=== PATIENT | male | born 1995 | race Caucasian/White ===

== ENCOUNTER 2017-09-26 02:35 | Emergency (ER) | END 2017-09-26 06:05 | disposition home or self-care (01) ==

== ENCOUNTER 2019-04-01 13:54 | Emergency (ER) | payer SELFPAY ==
[~2019-04-01] VITALS: Ht 172.7 cm; Wt 82.7 kg
[~2019-04-01 13:54] MED LIST: BEN50 PO; PRED50TA PO
[2019-04-01 14:00] VITALS: BP 165/79; PULSE 71; RESP 17; Ht 172.7 cm; Wt 82.7 kg
[2019-04-01] MEDS ORDERED: LIDOCAINE 2% (MDV) 20 ML INJ INJ STA (14:57)
[2019-04-01] MEDS ORDERED: KETOROLAC 30 MG INJ IM STA (14:57)
[2019-04-01] MEDS ORDERED: TRAM50TA2 PO (15:02)
[2019-04-01] MEDS ORDERED: ACET500C5 PO (15:02)
[2019-04-01] MEDS ORDERED: IBUP-1542 PO (15:02)
--- NOTE | 2019-04-01 15:06 | ERD ---
ER Documentation Chief Complaint Chief Complaint LAC ON RIGHT POSTERIOR ARM NEAR ELBOW, APPROX 3-4 INCHES HPI 23-year-old male with no reported past medical history presents with laceration to right posterior elbow. Patient states he sustained this injury around 12 PM this afternoon when he fell against a soccer goal post. Been having pain to area, wound initially bleeding but since then has resolved. He has been able to move the affected extremity and denies any numbness or weakness to the affected limb. He denies any other injuries. Reports all vaccinations up-to-date and no allergies to medications. ROS All systems reviewed and are negative except as per history of present illness. Medications Home Meds Active Scripts Acetaminophen* (Tylophen*) 500 Mg Capsule, 1 CAP PO Q6H PRN for PAIN AND OR ELEVATED TEMP, #20 CAP Prov:YASMANI HODGES-C 04/01/19 Ibuprofen* (Motrin*) 600 Mg Tab, 600 MG PO Q6, #30 TAB Prov:YASMANI HODGES-C 04/01/19 Tramadol HCl (Tramadol HCl) 50 Mg Tablet, 50 MG PO Q6 PRN for PAIN, #20 TAB Prov:YASMANI HODGES-C 04/01/19 Prednisone* (Prednisone*) 50 Mg Tablet, 50 MG PO DAILY for 5 Days, TAB Prov:TAYLOR GILLIS PHOTOGRAPHY MANAGER 09/26/17 Diphenhydramine Hcl* (Benadryl*) 50 Mg Cap, 50 MG PO Q6H PRN for ITCHING/RASH, #30 CAP Prov:TAYLOR GILLIS PHOTOGRAPHY MANAGER 09/26/17 Allergies Allergies: Coded Allergies: No Known Allergy (Unverified , 09/26/17) PMhx/Soc History of Surgery: No Hx Neurological Disorder: No Hx Respiratory Disorders: No Hx Cardiac Disorders: No Hx Psychiatric Problems: No Hx Miscellaneous Medical Probl: No Hx Alcohol Use: Yes (socially) Hx Substance Use: No Hx Tobacco Use: No FmHx Family History: No diabetes, No coronary disease, No other Physical Exam Vitals Vital Signs Date Temp Pulse Resp B/P (MAP) Pulse Ox O2 O2 Flow FiO2 Time Delivery Rate 04/01/19 98.5 71 17 165/79 99 14:00 (107) Physical Exam I have reviewed the triage vital signs. Const: Well nourished, well developed, appears stated age Eyes: PERRL, no conjunctival injection HENT: NCAT, Neck supple without meningismus CV: RRR, Warm, well-perfused extremities RESP: CTAB, Unlabored respiratory effort GI: soft, non-tender, non-distended, no masses MSK: Large approximately laceration to posterior forearm just below elbow, 5 out of 5 strength throughout right upper extremity, full range of motion at the elbow joint, SI LT throughout Skin: Warm, dry. No rashes Neuro: grossly non focal Psych: Appropriate mood and affect. Results 24 hrs Current Medications Medications Dose Sig/Solitario Start Time Status Last (Trade) Ordered Route PRN Stop Time Admin Dose Reason Admin Lidocaine 20 ml ONCE STAT 04/01/19 DC (Xylocaine INJ 14:57 2% (Mdv) 20 04/01/19 15:00 ml) Ketorolac 30 mg ONCE STAT 04/01/19 DC 04/01/19 Tromethamine IM 14:57 15:09 (Toradol) 04/01/19 15:00 Diphtheria/ 0.5 ml ONCE ONCE 04/01/19 DC 04/01/19 Tetanus/Acell IM* 15:30 15:10 Pertussis 04/01/19 15:31 (Adacel) Procedures/MDM 23-year-old male presents with laceration to posterior right arm. ED course: Laceration Repair by me: Anesthesia: 1% lidocaine locally Location: R posterior forearm,large wound, smaller Tendon/Joint/Nerves: No injury Foreign body: None detected after copious irrigation and exploration Technique: Simple Interrupted Sutures x 12 and 3 Complexity: No subcutaneous sutures/mucosal repair/edge excision Post Closure Length: 4 inches,.5 cm laceration Patient's bleeding was easily controlled in the department and there is no indication of anemia. No evidence of compartment syndrome, neurologic injury, vascular injury, open joint, tendon laceration, or foreign body. Patient is appropriate for outpatient follow up. Patient neurovascularly intact post procedure. 48 hour wound check. Scar minimization instructions given. Departure Diagnosis: Primary Impression: Laceration Condition: Stable Patient Instructions: Laceration (Sure+Close) Referrals: [facility] YOU HAVE RECEIVED A MEDICAL SCREENING EXAM AND THE RESULTS INDICATE THAT YOU DO NOT HAVE A CONDITION THAT REQUIRES URGENT TREATMENT IN THE EMERGENCY DEPARTMENT. FURTHER EVALUATION AND TREATMENT OF YOUR CONDITION CAN WAIT UNTIL YOU ARE SEEN IN YOUR DOCTORS OFFICE WITHIN THE NEXT 1-2 DAYS. IT IS YOUR RESPONSIBILITY TO MAKE AN APPOINTMENT FOR FOLOW-UP CARE. IF YOU HAVE A PRIMARY DOCTOR --you should call your primary doctor and schedule an appointment IF YOU DO NOT HAVE A PRIMARY DOCTOR YOU CAN CALL OUR PHYSICIAN REFERRAL HOTLINE AT IF YOU CAN NOT AFFORD TO SEE A PHYSICIAN YOU CAN CHOSE FROM THE FOLLOWING [facility] CLINICS [facility] [address] [facility] [address] [facility] [facility] [address] [facility] [address] [facility]. [facility] [address] [facility]. [facility]. [address] Additional Instructions: Call your primary care doctor TOMORROW for an appointment during the next 2-3 days.See the doctor sooner or return here if your condition worsens before your appointment time. Return as instructed for wound check 48 hours. YASMANI HODGES PA-C Apr 01, 2019 15:06
[2019-04-01] MEDS ORDERED: DIPHTH/TET/ACEL PERTUSS (ADULT) 0.5 ML VIAL IM* ONE (15:30)
== END 2019-04-01 16:27 | disposition home or self-care (01) ==
LOC: FTE 13:54
DX: S51.811A Laceration without foreign body of right forearm, initial encounter (principal); W18.39XA Other fall on same level, initial encounter; Y92.322 Soccer field as the place of occurrence of the external cause; Z23 Encounter for immunization
CPT/HCPCS: 12002; 90471; 90715; 96372; 99284; J1885

== ENCOUNTER 2019-04-03 14:49 | Emergency (ER) | payer SELFPAY ==
[~2019-04-03] VITALS: Wt 83.5 kg
[~2019-04-03 14:49] MED LIST changes: +ACET500C5 PO; +IBUP-1542 PO; +TRAM50TA2 PO
[2019-04-03 14:52] VITALS: BP 133/62; PULSE 68; RESP 18
--- NOTE | 2019-04-04 08:03 | ERD ---
ER Documentation Chief Complaint Chief Complaint right elbow wound check HPI 23-year-old male presenting for wound check of the right elbow. Patient had sutures placed 2 days ago and is healing appropriately. He denies any pain. Denies fevers. Denies swelling. Denies other medical problems. NKDA. Surgical history denies. Social history denies ROS All systems reviewed and are negative except as per history of present illness. Medications Home Meds Active Scripts Acetaminophen* (Tylophen*) 500 Mg Capsule, 1 CAP PO Q6H PRN for PAIN AND OR ELEVATED TEMP, #20 CAP Prov:JEUDINEFLORIDALMAHO PA-C 04/01/19 Ibuprofen* (Motrin*) 600 Mg Tab, 600 MG PO Q6, #30 TAB Prov:YASMANI HODGES PA-C 04/01/19 Tramadol HCl (Tramadol HCl) 50 Mg Tablet, 50 MG PO Q6 PRN for PAIN, #20 TAB Prov:FLORIDALMA HODGESHO PA-C 04/01/19 Prednisone* (Prednisone*) 50 Mg Tablet, 50 MG PO DAILY for 5 Days, TAB Prov:TAYLOR GILLIS SUPERINTENDENT DISTRIBUTION 09/26/17 Diphenhydramine Hcl* (Benadryl*) 50 Mg Cap, 50 MG PO Q6H PRN for ITCHING/RASH, #30 CAP Prov:TAYLOR GILLIS SUPERINTENDENT DISTRIBUTION 09/26/17 Allergies Allergies: Coded Allergies: No Known Allergy (Unverified , 09/26/17) PMhx/Soc Medical and Surgical Hx: pt denies Medical Hx, pt denies Surgical Hx History of Surgery: No Hx Neurological Disorder: No Hx Respiratory Disorders: No Hx Cardiac Disorders: No Hx Psychiatric Problems: No Hx Miscellaneous Medical Probl: No Hx Alcohol Use: Yes (socially) Hx Substance Use: No Hx Tobacco Use: No Smoking Status: Never smoker FmHx Family History: No diabetes, No coronary disease, No other Physical Exam Vitals Vital Signs Date Temp Pulse Resp B/P (MAP) Pulse Ox O2 O2 Flow FiO2 Time Delivery Rate 04/03/19 98.3 68 18 133/62 99 14:52 (85) Physical Exam GENERAL: The patient is well-appearing, well-nourished, in no acute distress CHEST: Clear to auscultation bilaterally. There are no rales, wheezes or rhonchi. HEART: Regular rate and rhythm. No murmurs, clicks, rubs or gallops. EXTREMITIES: Equal pulses bilaterally. There is no peripheral clubbing, cyanosis or edema. No focal swelling or erythema. Full range of motion. Grossly neurovascularly intact. NEUROLOGIC: Alert and oriented. Cranial nerves II through XII intact. Motor strength in all 4 extremities with 5 out of 5 strength. Sensation grossly intact. SKIN: Healing laceration noted to the right forearm with no surrounding erythema or dehiscence of the wound. Procedures/MDM DM: 23-year-old male presenting for wound check. Patient's wound is healing appropriately. I have low suspicion for wound infection. I have low suspicion for tendon or ligament injury. I have low suspicion for severe vascular injury. Patient is discharged with strict ER precautions and told to follow-up with primary care within 1 to 2 days for close evaluation. Patient is discharged with strict ER precautions and told to follow-up with primary care within 1 to 2 days for close evaluation. Patient is told symptoms change or worsen to return immediately to the ER. All questions answered at discharge Departure Diagnosis: Primary Impression: Encounter for wound re-check Condition: Stable Patient Instructions: Wound Check, Lac F/U (No Infection) Referrals: [facility] YOU HAVE RECEIVED A MEDICAL SCREENING EXAM AND THE RESULTS INDICATE THAT YOU DO NOT HAVE A CONDITION THAT REQUIRES URGENT TREATMENT IN THE EMERGENCY DEPARTMENT. FURTHER EVALUATION AND TREATMENT OF YOUR CONDITION CAN WAIT UNTIL YOU ARE SEEN IN YOUR DOCTORS OFFICE WITHIN THE NEXT 1-2 DAYS. IT IS YOUR RESPONSIBILITY TO MAKE AN APPOINTMENT FOR FOLOW-UP CARE. IF YOU HAVE A PRIMARY DOCTOR --you should call your primary doctor and schedule an appointment IF YOU DO NOT HAVE A PRIMARY DOCTOR YOU CAN CALL OUR PHYSICIAN REFERRAL HOTLINE AT IF YOU CAN NOT AFFORD TO SEE A PHYSICIAN YOU CAN CHOSE FROM THE FOLLOWING [facility] [address] [facility] [address] [facility] [address] [facility] [address] [facility] [address] [place] [address]. [facility]. [address] Additional Instructions: FOLLOW UP WITH YOUR PRIMARY CARE PHYSICIAN TOMORROW.Return to this facility if you are not improving as expected. LANDON PABLO PA-C Apr 04, 2019 08:03
== END 2019-04-03 15:28 | disposition home or self-care (01) ==
LOC: FTE 14:49
DX: Z48.01 Encounter for change or removal of surgical wound dressing (principal)
CPT/HCPCS: 99281

== ENCOUNTER 2019-04-09 09:21 | Emergency (ER) | payer SELFPAY ==
[~2019-04-09] VITALS: Ht 172.7 cm; Wt 83.0 kg
[2019-04-09 09:31] VITALS: BP 138/63; PULSE 63; RESP 16; Ht 172.7 cm; Wt 83.0 kg
--- NOTE | 2019-04-09 14:34 | ERD ---
ER Documentation Chief Complaint Chief Complaint REMOVAL OF STITCHED ON RT ARM PLACED ONE WEEK AGO HPI 23-year-old male presenting for suture removal to the right arm. Patient has had the in for the last 8 days without complication. Denies any pain with movement and no numbness or tingling. No swelling. No other medical problems. NKDA. Surgical history denies. Social history denies ROS All systems reviewed and are negative except as per history of present illness. Medications Home Meds Active Scripts Acetaminophen* (Tylophen*) 500 Mg Capsule, 1 CAP PO Q6H PRN for PAIN AND OR ELEVATED TEMP, #20 CAP Prov:JOSE LUDINEYASMANI PA-C 04/01/19 Ibuprofen* (Motrin*) 600 Mg Tab, 600 MG PO Q6, #30 TAB Prov:YASMANI HODGES PA-C 04/01/19 Tramadol HCl (Tramadol HCl) 50 Mg Tablet, 50 MG PO Q6 PRN for PAIN, #20 TAB Prov:FLORIDALMA HODGESHO PA-C 04/01/19 Prednisone* (Prednisone*) 50 Mg Tablet, 50 MG PO DAILY for 5 Days, TAB Prov:TAYLOR GILLIS APPOINTMENT SCHEDULER 09/26/17 Diphenhydramine Hcl* (Benadryl*) 50 Mg Cap, 50 MG PO Q6H PRN for ITCHING/RASH, #30 CAP Prov:TAYLOR GILLIS APPOINTMENT SCHEDULER 09/26/17 Allergies Allergies: Coded Allergies: No Known Allergy (Unverified , 09/26/17) PMhx/Soc History of Surgery: No Hx Neurological Disorder: No Hx Respiratory Disorders: No Hx Cardiac Disorders: No Hx Psychiatric Problems: No Hx Miscellaneous Medical Probl: No Hx Alcohol Use: Yes (socially) Hx Substance Use: No Hx Tobacco Use: No FmHx Family History: No diabetes, No coronary disease, No other Physical Exam Vitals Vital Signs Date Temp Pulse Resp B/P (MAP) Pulse Ox O2 O2 Flow FiO2 Time Delivery Rate 04/09/19 97.6 63 16 138/63 100 09:31 (88) Physical Exam GENERAL: The patient is well-appearing, well-nourished, in no acute distress CHEST: Clear to auscultation bilaterally. There are no rales, wheezes or rhonchi. HEART: Regular rate and rhythm. No murmurs, clicks, rubs or gallops. EXTREMITIES: Equal pulses bilaterally. There is no peripheral clubbing, cyanosis or edema. No focal swelling or erythema. Full range of motion. . NEUROLOGIC: Alert and oriented. Cranial nerves II through XII intact. Motor strength in all 4 extremities with 5 out of 5 strength. Sensation grossly intact. Normal speech and gait. SKIN: Healed laceration noted to the right elbow with no surrounding erythema or dehiscence. Sutures intact without infection or erythema. Procedures/MDM ER course: Sutures removed without complication. MDM: 23-year-old male presenting for suture removal. I will suspicion for surrounding erythema or dehiscence. I have low suspicion for complication secondary to replacement. Patient is discharged with strict ER precautions and told to follow-up with primary care within 1 to 2 days for close evaluation. Patient is told symptoms change or worsen to return immediately to the ER. All questions answered at discharge Departure Diagnosis: Primary Impression: Encounter for removal of sutures Condition: Stable Patient Instructions: Suture Removal, No Complication Referrals: [facility] YOU HAVE RECEIVED A MEDICAL SCREENING EXAM AND THE RESULTS INDICATE THAT YOU DO NOT HAVE A CONDITION THAT REQUIRES URGENT TREATMENT IN THE EMERGENCY DEPARTMENT. FURTHER EVALUATION AND TREATMENT OF YOUR CONDITION CAN WAIT UNTIL YOU ARE SEEN IN YOUR DOCTORS OFFICE WITHIN THE NEXT 1-2 DAYS. IT IS YOUR RESPONSIBILITY TO MAKE AN APPOINTMENT FOR FOLOW-UP CARE. IF YOU HAVE A PRIMARY DOCTOR --you should call your primary doctor and schedule an appointment IF YOU DO NOT HAVE A PRIMARY DOCTOR YOU CAN CALL OUR PHYSICIAN REFERRAL HOTLINE AT IF YOU CAN NOT AFFORD TO SEE A PHYSICIAN YOU CAN CHOSE FROM THE FOLLOWING [facility] [address] [facility] [address] [facility] [address] [facility]. [facility] [address] [facility] [address] [facility]. [facility]. [address] Additional Instructions: FOLLOW UP WITH YOUR PRIMARY CARE PHYSICIAN TOMORROW.Return to this facility if you are not improving as expected. LANDON PABLO PA-C Apr 09, 2019 14:34
== END 2019-04-09 10:48 | disposition home or self-care (01) ==
LOC: FTE 09:21
DX: Z48.02 Encounter for removal of sutures (principal)
CPT/HCPCS: 99281